=== PATIENT | female | born 1985 | race Two or more races ===

== ENCOUNTER 2017-05-09 15:07 | Emergency (ER) | payer MEDICAID ==
[~2017-05-09] VITALS: Ht 162.6 cm; Wt 158.8 kg
[2017-05-09] MEDS ORDERED: SODIUM CHLORIDE 0.9% 1,000 ML IVB ONE (15:19)
[2017-05-09 16:27] LABS: Albumin 3.1 g/dL (3.4-5.0); BUN/Creatinine Ratio 17.9; Bilirubin, Total 0.3 mg/dL (0.2-1.0); Calcium 8.1 mg/dL (8.5-10.1); Magnesium 2.1 mg/dL (1.6-2.6); Potassium 3.7 mmol/L (3.5-5.1); Total Protein 7.2 g/dL (6.4-8.2)
[2017-05-09] MEDS ORDERED: ACETAMINOPHEN 325 MG TAB PO ONE ×2 (16:50→17:00)
[2017-05-09 17:02] LABS: Basophils # (auto) 0 uL; Basophils % (auto) 0.7 % (0.0-2.0); Eosinophils # (auto) 0.1 uL; Eosinophils % (auto) 0.9 % (0.0-7.0); Hematocrit 39.8 % (36.0-46.0); Hemoglobin 13.3 g/dL (12.2-16.2); Lymphocytes % (auto) 30.3 % (10.0-50.0); Mean Corpuscular Hemoglobin 29.8 pg (28.0-32.0); Mean Corpuscular Hgb Conc. 33.3 g/dL (32.0-36.0); Mean Corpuscular Volume 89.4 fL (80.0-100.0); Mean Platelet Volume 8.8 fL (6.9-10.8); Monocytes # (auto) 0.4 uL; Monocytes % (auto) 5.9 % (0.0-12.0); Neutrophils # (auto) 4.2 uL; Neutrophils % (auto) 62.2 % (37.0-80.0); Nucleated Red Blood Cells % 0.1 %; Platelet Count (auto) 266 10^3/uL (140-450); Red Cell Distribution Width 13.8 % (11.8-14.3); White Blood Cell 6.7 10^3/uL (4.4-10.8)
[2017-05-09 17:18] VITALS: BP 113/73
== END 2017-05-09 18:11 | disposition home or self-care (01) ==
LOC: EDBD 15:07 → ER 15:15
DX: R55 Syncope and collapse (principal); R51 Headache
CPT/HCPCS: 36415; 70450; 80053; 80307; 81025; 83735; 85025; 93005; 94761; 96360; 99285; J7030